=== PATIENT | female | born 1970 | race Caucasian/White ===

== ENCOUNTER 2016-08-30 08:51 | Emergency (ER) | payer OTHER ==
[~2016-08-30] VITALS: Ht 152.4 cm; Wt 69.5 kg
[~2016-08-30 08:51] MED LIST: BACL10TA PO; BUTR20DI2 TD; CYMB60CA PO; FIORIC PO; RANI150 PO; TOPI25CA PO; ZOFR4TAB3 SL
[2016-08-30 08:53] VITALS: BP 143/82; PULSE 78; RESP 20; TEMP 99.3; O2SAT 96
--- NOTE | 2016-08-30 09:04 | PD ---
HPI . Left wrist pain for 2 days Chief Complaint: Edema Time Seen by Provider: 09:04 Travel History International Travel<30 days: No Contact w/Intl Traveler<30days: No Traveled to known affect area: No History of Present Illness HPI 46-year-old female with history of migraines, rheumatoid arthritis, anxiety and depression here with complaints of left wrist pain for the past 2 days. Patient said she was doing some yard work and all of a sudden yesterday developed some intense left wrist pain. She does not recall any type of injury however tells me that it was possible. She rates the pain as 9.5/10 in the left distal wrist. There is no further radiation. She is right-hand dominant. PFSH Past Medical History Arthritis: Yes (RA) Anxiety: Yes Depression: Yes Cancer: No Cardiovascular Problems: No Diabetes: No Endocrine: No Genitourinary: No Headaches: Yes Hepatitis: No Hiatal Hernia: No Immune Disorder: No Kidney Stones: Yes Musculoskeletal: Yes (RHEUMATOID ARTHRITIS/BACK) Neurologic: No Psychiatric: Yes (ANXIETY, DEPRESSION) Reproductive: No Respiratory: No Immunizations Current: Yes Thyroid Disease: No ?: Not LMP: 5-6 months ago. : 2 Para: 2 Tubal Ligation: Yes Past Surgical History AICD: No Joint Replacement: No Pacemaker: No Other Surgery: Yes (EPIDURAL) Social History Alcohol Use: No Tobacco Use: No Substance Use: No Allergies-Medications (Allergen,Severity, Reaction): Coded Allergies: Sulfa (Verified Allergy, Severe, Hives, 08/30/16) Reported Meds & Prescriptions Reported Meds & Active Scripts Active Medrol Dosepak (Methylprednisolone) 4 Mg Dspk 4 Mg PO DIRECTED Per Pharmacist direction Reported Trazodone (Trazodone HCl) 50 Mg Tab 50 Mg PO HS Leflunomide 20 Mg Tab 20 Mg PO DAILY Amoxicillin 250 Mg Cap 250 Mg PO BID Cymbalta (Duloxetine Hcl) 60 Mg Cap 60 Mg PO DAILY Zantac 150 Mg Tab (Ranitidine HCl) 150 Mg Tab 150 Mg PO BID Review of Systems General / Constitutional: No: Fever Eyes: No: Visual changes HENT: No: Headaches Cardiovascular: No: Chest Pain or Discomfort Respiratory: No: Shortness of Breath Gastrointestinal: No: Abdominal Pain Genitourinary: No: Dysuria Musculoskeletal: Positive: Pain (left wrist ) Skin: No Rash Neurologic: No: Weakness Psychiatric: No: Depression Endocrine: No: Polydipsia Hematologic/Lymphatic: No: Easy Bruising Physical Exam Narrative GENERAL: AAO x 3, no acute distress, Well-nourished, well-developed patient. SKIN: Warm and dry. No visible rashes or bruising. very minimal erythema of the left distal wrist, warm to touch compared to right wrist, no edema or ecchymosis HEAD: Normocephalic and atraumatic. EYES: No scleral icterus. No injection or drainage. ENT: No nasal drainage noted. Airway patent. NECK: Supple, trachea midline. No JVD. CARDIOVASCULAR: Regular rate and rhythm without murmurs, gallops, or rubs. RESPIRATORY: Breath sounds equal bilaterally. No accessory muscle use. No rhonchi or rales. GASTROINTESTINAL: Abdomen soft, non-tender, nondistended. EXTREMITIES: No cyanosis or edema. tenderness to left distal wrist both ulnar and radial sides. no obvious deformity. no ecchymosis. 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 No CVA tenderness. PSYCH: AAO x 3, normal affect. Data Data Last Documented VS Vital Signs Date Time Temp Pulse Resp B/P Pulse Ox O2 Delivery O2 Flow Rate FiO2 08/30/16 08:53 99.3 78 20 143/82 96 Room Air Orders Wrist, Complete ([id number]) (08/30/16 09:12) Ketorolac Inj (Toradol Inj) (08/30/16 09:30) Support Splint (08/30/16 09:42) MDM Medical Decision Making Medical Screen Exam Complete: Yes Emergency Medical Condition: Yes Medical Record Reviewed: Yes Differential Diagnosis acute on chronic pain due to RA, wrist fracture, wrist contusion Narrative Course 46-year-old female with history of migraines, rheumatoid arthritis, anxiety and depression here with complaints of left wrist pain for the past 2 days. Patient said she was doing some yard work and all of a sudden yesterday developed some intense left wrist pain. She does not recall any type of injury however tells me that it was possible. She rates the pain as 9.5/10 in the left distal wrist. There is no further radiation. She is right-hand dominant. Patient seen and examined. I believe she may be experiencing a flare of her rheumatoid arthritis, however with her recent bouts of yard work I will check an x-ray to rule out fracture. Toradol for pain (patient drove here and we want to avoid any drowsiness etc) Last Impressions Wrist X-Ray 08/30/16 0912 Signed Impressions: Service Date/Time: Tuesday, August 30, 2016 09:36 - CONCLUSION: Negative exam. Gigi Blackmon MD No acute findings. Wrist brace given. Medrol dose pack. Advised f/u with PCP and Toddler Lead Teacher. Patient verbalized understanding of instructions, questions were answered, and thanked me for their care. I advised them if their condition worsens, please return to the nearest emergency room for further care. Diagnosis Primary Impression: Wrist pain, left Patient Instructions: General Instructions Additional Instructions: Please return to emergency department if your symptoms return or worsen. Follow up with your primary care provider. Take medications as prescribed. Please follow up with your vp design. Wear the wrist brace for support. You can ice the area as needed. Scripts Methylprednisolone Dosepak (Medrol Dosepak)4 Mg Dspk4 Mg PO DIRECTED #1 DSPK Ref 0 Per Pharmacist direction Prov:Bruna Alfaro DO 08/30/16 Disposition: 01 DISCHARGE HOME Condition: Stable Osiris Calderon Aug 30, 2016 09:04
[2016-08-30] MEDS ORDERED: AMOX250C3 PO (09:07)
[2016-08-30] MEDS ORDERED: TRAZ50TA12 PO (09:09)
[2016-08-30] MEDS ORDERED: LEFL1TAB3 PO (09:09)
[2016-08-30] MEDS ORDERED: KETOROLAC TROMETHAMINE 60 MG/2 ML (IM) VIAL IM ONE (09:30)
--- NOTE | 2016-08-30 09:33 | RADRPT ---
EXAM DATE/TIME: 08/30/2016 09:36 [facility] COMPARISON: No previous studies available for comparison. INDICATIONS : Left wrist pain, no injury. MEDICAL HISTORY : Rheumatoid arthritis. SURGICAL HISTORY : None. ENCOUNTER: Initial ACUITY: 2 days PAIN SCORE: 10/10 LOCATION: Left lateral wrist FINDINGS: Three view examination of the left wrist demonstrates no soft tissue swelling, dislocation, or fractu re. The carpal bones are in normal alignment. The joint spaces are maintained. Bony mineralization is normal. CONCLUSION: Negative exam. Gigi Blackmon MD on August 30, 2016 at 9:31 Board Certified Radiologist. This report was verified electronically.
[2016-08-30] MEDS ORDERED: MEDR4PAK PO (09:41)
== END 2016-08-30 10:12 | disposition home or self-care (01) ==
LOC: NEPK 08:51
DX: M25.532 Pain in left wrist (principal); F41.9 Anxiety disorder, unspecified; M06.9 Rheumatoid arthritis, unspecified; F32.9 Major depressive disorder, single episode, unspecified; X50.9XXA Other and unspecified overexertion or strenuous movements or postures, initial encounter; Y93.H2 Activity, gardening and landscaping; Y92.017 Garden or yard in single-family (private) house as the place of occurrence of the external cause; Y99.8 Other external cause status
CPT/HCPCS: 73110; 96372; 99283; J1885; L3908

== ENCOUNTER 2017-07-22 04:40 | Emergency (ER) | payer OTHER ==
[~2017-07-22] VITALS: Ht 152.4 cm; Wt 68.0 kg
[~2017-07-22 04:40] MED LIST changes: +AMOX250C3 PO; -BUTR20DI2 TD; -FIORIC PO; +GABA100C4 PO; +HYDR-3516 PO; +LEFL1TAB3 PO; +LEFL20TA11 PO; +MEDR4PAK PO; +PLAQ200T PO; +PRED5TAB PO; +RANI150T PO; +TOPI25 PO; -TOPI25CA PO; +TRAZ50TA12 PO; -ZOFR4TAB3 SL
[2017-07-22 04:42] VITALS: BP 167/107; PULSE 85; RESP 18; TEMP 99.3; O2SAT 98
[2017-07-22] MEDS ORDERED: TRAM50TA PO (04:55)
[2017-07-22] MEDS ORDERED: MAXA10TA2 (04:55)
--- NOTE | 2017-07-22 05:10 | PD ---
HPI Chief Complaint: Abdominal Pain Time Seen by Provider: 05:01 Travel History International Travel<30 days: No Contact w/Intl Traveler<30days: No Traveled to known affect area: No History of Present Illness HPI 46yo F with PMH of rheumatoid arthritis and nephrolithiasis here with c/o left abdominal pain since 7pm. Associated with nausea. Nothing makes the pain better or worst. Pain is intermittent and sharp. Denies any fever, chest pain , sob, vomiting, focal weakness. Said it does not feel like her kidney stone. PFSH Past Medical History Arthritis: Yes (RA) Anxiety: Yes Depression: Yes Cancer: No Cardiovascular Problems: No Diabetes: No Endocrine: No Gastrointestinal Disorders: No Genitourinary: No Headaches: Yes Hepatitis: No Hiatal Hernia: No Hypertension: No Immune Disorder: No Kidney Stones: Yes Musculoskeletal: Yes (RHEUMATOID ARTHRITIS/BACK) Neurologic: No Psychiatric: Yes (ANXIETY, DEPRESSION) Reproductive: No Respiratory: No Immunizations Current: Yes Thyroid Disease: No ?: Unknown : 2 Para: 2 Tubal Ligation: Yes Past Surgical History AICD: No Genitourinary Surgery: Yes (ureteral stent placement, lithotripsy ) Joint Replacement: No Pacemaker: No Other Surgery: Yes (EPIDURAL) Social History Alcohol Use: No Tobacco Use: No Substance Use: No Allergies-Medications (Allergen,Severity, Reaction): Coded Allergies: Sulfa (Sulfonamide Antibiotics) (Unverified Allergy, Severe, Hives, ) Reported Meds & Prescriptions Reported Meds & Active Scripts Active Ibuprofen 800 Mg Tab 800 Mg PO Q8H PRN Phenergan (Promethazine HCl) 25 Mg Tablet 25 Mg PO Q6H PRN Flomax (Tamsulosin HCl) 0.4 Mg Cap 0.4 Mg PO HS Percocet (Oxycodone-Acetaminophen) 5-325 mg Tab 1 Tab PO Q4H PRN Reported Tramadol (Tramadol HCl) 50 Mg Tab 50 Mg PO Q8H PRN Maxalt (Rizatriptan Benzoate) 10 Mg Tab Hydrocodone-Acetaminophen 5-325 mg Tab 1 Tab PO TID PRN Baclofen 10 Mg Tab 10 Mg PO Q8HR Gabapentin 100 Mg Cap 100 Mg PO TID Ranitidine (Ranitidine HCl) 150 Mg Tab 150 Mg PO BID Plaquenil (Hydroxychloroquine Sulfate) 200 Mg Tab 100 Mg PO BID Take with food Topamax (Topiramate) 25 Mg Tab 25 Mg PO BID Prednisone 5 Mg Tab 5 Mg PO DAILY Cymbalta DR (Duloxetine HCl) 60 Mg Capdr 60 Mg PO DAILY Trazodone (Trazodone HCl) 50 Mg Tab 50 Mg PO HS Leflunomide 20 Mg Tab 20 Mg PO DAILY Cymbalta (Duloxetine Hcl) 60 Mg Cap 60 Mg PO DAILY Zantac 150 Mg Tab (Ranitidine HCl) 150 Mg Tab 150 Mg PO BID Review of Systems Except as stated in HPI: all other systems reviewed are Neg Physical Exam Narrative GENERAL: 46yo F in mild distress. SKIN: Focused skin assessment warm/dry. HEAD: Atraumatic. Normocephalic. CARDIOVASCULAR: Regular rate and rhythm. No murmur appreciated. RESPIRATORY: No accessory muscle use. Clear to auscultation. Breath sounds equal bilaterally. GASTROINTESTINAL: Abdomen soft, +TTP epigastric region. +TTP LUQ, LLQ. No rebound tenderness or guarding. BACK: No CVA tenderness bilaterally. MUSCULOSKELETAL: No obvious deformities. No clubbing. No cyanosis. No edema. NEUROLOGICAL: Awake and alert. No obvious cranial nerve deficits. Motor grossly within normal limits. Normal speech. PSYCHIATRIC: Appropriate mood and affect; insight and judgment normal. Data Data Last Documented VS Vital Signs Date Time Temp Pulse Resp B/P (MAP) Pulse Ox O2 Delivery O2 Flow Rate FiO2 07/22/17 08:35 97.9 83 16 143/81 (101) 99 Orders Orders Complete Blood Count With Diff (07/22/17 05:06) Comprehensive Metabolic Panel (07/22/17 05:06) Lipase (07/22/17 05:06) Urinalysis - C+S If Indicated (07/22/17 05:06) Electrocardiogram (07/22/17 ) Ct Abd/Pel W/O Iv Contrast (07/22/17 05:06) Morphine Inj (Morphine Inj) (07/22/17 06:30) Ondansetron Inj (Zofran Inj) (07/22/17 06:30) Sodium Chlor 0.9% 1000 Ml Inj (Ns 1000 M (07/22/17 06:30) Morphine Inj (Morphine Inj) (07/22/17 07:00) Ketorolac Inj (Toradol Inj) (07/22/17 07:15) Tamsulosin (Flomax) (07/22/17 07:15) Ed Discharge Order (07/22/17 08:30) Labs Laboratory Tests Test 07/22/17 05:12 07/22/17 05:55 White Blood Count 10.0 TH/MM3 Red Blood Count 4.61 MIL/MM3 Hemoglobin 14.3 GM/DL Hematocrit 42.5 % Mean Corpuscular Volume 92.4 FL Mean Corpuscular Hemoglobin 31.0 PG Mean Corpuscular Hemoglobin Concent 33.6 % Red Cell Distribution Width 13.2 % Platelet Count 261 TH/MM3 Mean Platelet Volume 8.4 FL Neutrophils (%) (Auto) 75.5 % Lymphocytes (%) (Auto) 9.9 % Monocytes (%) (Auto) 13.3 % Eosinophils (%) (Auto) 0.9 % Basophils (%) (Auto) 0.4 % Neutrophils # (Auto) 7.6 TH/MM3 Lymphocytes # (Auto) 1.0 TH/MM3 Monocytes # (Auto) 1.3 TH/MM3 Eosinophils # (Auto) 0.1 TH/MM3 Basophils # (Auto) 0.0 TH/MM3 CBC Comment DIFF FINAL Differential Comment Blood Urea Nitrogen 19 MG/DL Creatinine 1.22 MG/DL Random Glucose 101 MG/DL Total Protein 7.0 GM/DL Albumin 3.3 GM/DL Calcium Level 8.8 MG/DL Alkaline Phosphatase 94 U/L Aspartate Amino Transf (AST/SGOT) 23 U/L Alanine Aminotransferase (ALT/SGPT) 23 U/L Total Bilirubin 0.4 MG/DL Sodium Level 140 MEQ/L Potassium Level 3.8 MEQ/L Chloride Level 107 MEQ/L Carbon Dioxide Level 27.6 MEQ/L Anion Gap 5 MEQ/L Estimat Glomerular Filtration Rate 47 ML/MIN Lipase 218 U/L Urine Color YELLOW Urine Turbidity HAZY Urine pH 7.0 Urine Specific [place] 1.017 Urine Protein NEG mg/dL Urine Glucose (UA) NEG mg/dL Urine Ketones NEG mg/dL Urine Occult Blood NEG Urine Nitrite NEG Urine Bilirubin NEG Urine Urobilinogen LESS THAN 2.0 MG/DL Urine Leukocyte Esterase SMALL Urine RBC 1 /hpf Urine WBC 3 /hpf Urine Squamous Epithelial Cells <1 /hpf Urine Amorphous Sediment RARE Microscopic Urinalysis Comment CULT NOT INDICATED MDM Medical Decision Making Medical Screen Exam Complete: Yes Emergency Medical Condition: Yes Interpretation(s) EKG: NSR 69bpm. LAD. No ST segment elevation or depression. Differential Diagnosis Gastritis vs. pancreatitis vs. diverticulitis Narrative Course 46yo F with left sided abdominal pain. Labs reviewed, no leukocytosis. H/H normal. Creatinine is 1.22. Lipase normal. UA showed WBC 3. Culture not indicated. CT a/p showed multiple stones in proximal left ureter causing moderate obstructive uropathy. The largest and most distal stone is approximately 7mm in size. Multiple scattered nonobstructing stones in both kidneys are seen. Pt given zofran, morphine and NS IVF. Pt has urologist Dr. Hannah to follow up with. Pt reevaluated at bedside after morphine 4mg IV and is still in a lot of pain so another 4mg of morphine given. Sign out to next team to reevaluate. If pt's pain is control, she can follow up with Dr. Hannah but if unable to control pain, pt will need to be admitted. Diagnosis Primary Impression: Left ureteral calculus Patient Instructions: General Instructions Departure Forms: Tests/Procedures Additional Instructions: Please follow up with your urologist in 1-2 days. Return to the ED if symptoms worsen. Scripts Ibuprofen (Ibuprofen) 800 Mg Tab 800 MG PO Q8H Y for Pain/Inflammation, #60 TAB 0 Refills Prov: Gilda Austin MD 07/22/17 Promethazine (Phenergan) 25 Mg Tablet 25 MG PO Q6H Y for NAUSEA OR VOMITING, #12 TAB 0 Refills Prov: Gilda Austin MD 07/22/17 Tamsulosin (Flomax) 0.4 Mg Cap 0.4 MG PO HS for Manage Prostate Problems, #30 CAP 0 Refills Prov: Gilda Austin MD 07/22/17 Oxycodone-Acetaminophen (Percocet) 5-325 mg Tab 1 TAB PO Q4H Y for PAIN, #12 TAB 0 Refills Prov: Gilda Austin MD 07/22/17 Bruna Alfaro DO Jul 22, 2017 05:10
[2017-07-22 05:27] LABS: AUTOMATED NEUTROPHIL # 7.6 TH/MM3 (1.8-7.7); BASOPHIL % 0.4 % (0.0-2.0); EOSINOPHIL # 0.1 TH/MM3 (0-0.4); EOSINOPHIL % 0.9 % (0.0-4.0); HEMATOCRIT 42.5 % (35.0-46.0); HEMOGLOBIN 14.3 GM/DL (11.6-15.3); LYMPH % 9.9 % (9.0-44.0); MEAN CELL VOLUME 92.4 FL (80.0-100.0); MEAN CORPUSCULAR HGB CONC 33.6 % (32.0-36.0); MEAN PLATELET VOLUME 8.4 FL (7.0-11.0); MONO % 13.3 % (0.0-8.0); MONOCYTE # 1.3 TH/MM3 (0-0.9); NEUT % 75.5 % (16.0-70.0); PLATELET COUNT 261 TH/MM3 (150-450); RED BLOOD COUNT 4.61 MIL/MM3 (4.00-5.30); RED CELL DISTRIBUTION WIDTH 13.2 % (11.6-17.2)
[2017-07-22 05:47] LABS: ALBUMIN 3.3 GM/DL (3.4-5.0); ALT (GPT) 23 U/L (10-53); AST (GOT) 23 U/L (15-37); BICARBONATE 27.6 MEQ/L (21.0-32.0); BLOOD UREA NITROGEN 19 MG/DL (7-18); CALCIUM 8.8 MG/DL (8.5-10.1); CHLORIDE 107 MEQ/L (98-107); CREATININE 1.22 MG/DL (0.50-1.00); GLOMERULAR FILTRATION RATE 47 ML/MIN (>89); GLUCOSE,RANDOM 101 MG/DL (74-106); SODIUM (NA) 140 MEQ/L (136-145)
[2017-07-22 05:50] LABS: ALKALINE PHOSPHATASE 94 U/L (45-117); TOTAL BILIRUBIN ADULT 0.4 MG/DL (0.2-1.0)
--- NOTE | 2017-07-22 06:20 | RADRPT ---
EXAM DATE/TIME: 07/22/2017 06:03 [facility] COMPARISON: CT NEEDLE BIOPSY LIVER, February 19, 2015, 9:26. INDICATIONS : Abdominal pain. ORAL CONTRAST: No oral contrast ingested. RADIATION DOSE: 7.73 CTDIvol (mGy) MEDICAL HISTORY : Renal calculi. SURGICAL HISTORY : Tubal ligation. ENCOUNTER: Initial ACUITY: 1 day PAIN SCALE: 7/10 LOCATION: abdomen TECHNIQUE: Volumetric scanning of the abdomen and pelvis was performed. Using automated exposure control and ad justment of the mA and/or kV according to patient size, radiation dose was kept as low as reasonably achievable to obtain optimal diagnostic quality images. DICOM format image data is available electro nically for review and comparison. FINDINGS: LOWER LUNGS: The visualized lower lungs are clear. LIVER: Too numerous to count, mostly small cysts seen scattered throughout the liver. Similar findings were seen on the limited study during biopsy back in 2014. SPLEEN: Normal size without lesion. PANCREAS: Within normal limits. KIDNEYS: There is a 7 mm stone in the proximal left ureter. There are 3 and 4 mm stones just upstream of it. T here is moderate severity left hydronephrosis. Multiple sub-4 mm nonobstructing stones are seen scatt ered of both kidneys. No ureteral calculus or obstructive uropathy on the right. ADRENAL GLANDS: Within normal limits. VASCULAR: There is no aortic aneurysm. BOWEL/MESENTERY: The stomach, small bowel, and colon demonstrate no acute abnormality. There is no free intraperitone al air or fluid. ABDOMINAL WALL: Within normal limits. RETROPERITONEUM: There is no lymphadenopathy. BLADDER: No wall thickening or mass. REPRODUCTIVE: Within normal limits. INGUINAL: There is no lymphadenopathy or hernia. MUSCULOSKELETAL: Within normal limits for patient age. CONCLUSION: 1. Multiple stones in the proximal left ureter causing moderate obstructive uropathy. The largest and most distal stone is approximately 7 mm in size. Multiple scattered nonobstructing stones in both ki dneys are also seen. 2. Numerous scattered small hepatic cysts. Dileep Mccray MD on July 22, 2017 at 6:16 Board Certified Radiologist. This report was verified electronically.
[2017-07-22 06:30] LABS: AMORPHOUS SEDIMENT, URINE RARE; BILIRUBIN, URINE NEG (NEG); BLOOD, URINE NEG (NEG); GLUCOSE,URINE NEG (NEG); KETONE, URINE NEG (NEG); NITRITE,URINE NEG (NEG); SQUAMOUS EPITHELIAL CELL URINE <1 /hpf (0-5); URINE COLOR YELLOW (YELLW/STRAW); URINE LEUKOCYTE ESTERASE SMALL (NEG)
[2017-07-22] MEDS ORDERED: MORPHINE SULFATE 4 MG/ML INJ IV PUSH ONE ×2 (06:30→07:00)
[2017-07-22] MEDS ORDERED: ONDANSETRON HCL 4 MG/2 ML VIAL IV PUSH ONE (06:30)
[2017-07-22] MEDS ORDERED: SODIUM CHLOR 0.9% 1000 ML INJ 1,000 ML IV ONE (06:30)
[2017-07-22] MEDS ORDERED: TAMSULOSIN HCL 0.4 MG CAP PO ONE (07:15)
[2017-07-22] MEDS ORDERED: KETOROLAC TROMETHAMINE 30 MG/ML (IVP) VIAL IV PUSH ONE (07:15)
[2017-07-22 07:20] VITALS: BP 158/83; PULSE 89; RESP 17; TEMP 97.8; O2SAT 99
--- NOTE | 2017-07-22 07:48 | PD ---
Physical Exam Date Seen by Provider: Jul 22, 2017 Narrative Care was assumed at 7 AM for pain control associated with a kidney stone. Data Data Last Documented VS Vital Signs Date Time Temp Pulse Resp B/P (MAP) Pulse Ox O2 Delivery O2 Flow Rate FiO2 07/22/17 08:22 15 07/22/17 07:20 97.8 89 158/83 (108) 99 Orders Orders Complete Blood Count With Diff (07/22/17 05:06) Comprehensive Metabolic Panel (07/22/17 05:06) Lipase (07/22/17 05:06) Urinalysis - C+S If Indicated (07/22/17 05:06) Electrocardiogram (07/22/17 ) Ct Abd/Pel W/O Iv Contrast (07/22/17 05:06) Morphine Inj (Morphine Inj) (07/22/17 06:30) Ondansetron Inj (Zofran Inj) (07/22/17 06:30) Sodium Chlor 0.9% 1000 Ml Inj (Ns 1000 M (07/22/17 06:30) Morphine Inj (Morphine Inj) (07/22/17 07:00) Ketorolac Inj (Toradol Inj) (07/22/17 07:15) Tamsulosin (Flomax) (07/22/17 07:15) Labs Laboratory Tests Test 07/22/17 05:12 07/22/17 05:55 White Blood Count 10.0 TH/MM3 Red Blood Count 4.61 MIL/MM3 Hemoglobin 14.3 GM/DL Hematocrit 42.5 % Mean Corpuscular Volume 92.4 FL Mean Corpuscular Hemoglobin 31.0 PG Mean Corpuscular Hemoglobin Concent 33.6 % Red Cell Distribution Width 13.2 % Platelet Count 261 TH/MM3 Mean Platelet Volume 8.4 FL Neutrophils (%) (Auto) 75.5 % Lymphocytes (%) (Auto) 9.9 % Monocytes (%) (Auto) 13.3 % Eosinophils (%) (Auto) 0.9 % Basophils (%) (Auto) 0.4 % Neutrophils # (Auto) 7.6 TH/MM3 Lymphocytes # (Auto) 1.0 TH/MM3 Monocytes # (Auto) 1.3 TH/MM3 Eosinophils # (Auto) 0.1 TH/MM3 Basophils # (Auto) 0.0 TH/MM3 CBC Comment DIFF FINAL Differential Comment Blood Urea Nitrogen 19 MG/DL Creatinine 1.22 MG/DL Random Glucose 101 MG/DL Total Protein 7.0 GM/DL Albumin 3.3 GM/DL Calcium Level 8.8 MG/DL Alkaline Phosphatase 94 U/L Aspartate Amino Transf (AST/SGOT) 23 U/L Alanine Aminotransferase (ALT/SGPT) 23 U/L Total Bilirubin 0.4 MG/DL Sodium Level 140 MEQ/L Potassium Level 3.8 MEQ/L Chloride Level 107 MEQ/L Carbon Dioxide Level 27.6 MEQ/L Anion Gap 5 MEQ/L Estimat Glomerular Filtration Rate 47 ML/MIN Lipase 218 U/L Urine Color YELLOW Urine Turbidity HAZY Urine pH 7.0 Urine Specific [place] 1.017 Urine Protein NEG mg/dL Urine Glucose (UA) NEG mg/dL Urine Ketones NEG mg/dL Urine Occult Blood NEG Urine Nitrite NEG Urine Bilirubin NEG Urine Urobilinogen LESS THAN 2.0 MG/DL Urine Leukocyte Esterase SMALL Urine RBC 1 /hpf Urine WBC 3 /hpf Urine Squamous Epithelial Cells <1 /hpf Urine Amorphous Sediment RARE Microscopic Urinalysis Comment CULT NOT INDICATED MDM Supervised Visit with JUANI: No Narrative Course Patient presented with left-sided abdominal pain. CT shows a 7 mm proximal left ureteral stone with mild hydronephrosis. The patient had been given morphine 4 mg IV initially. She has subsequently been given a second dose of morphine along with IV Toradol and oral Flomax. Her pain will be reassessed following these medications. 8 AM Patient reports that she is markedly improved. Diagnosis Primary Impression: Left ureteral calculus Referrals: Krunal Hannah MD 2 days Patient Instructions: General Instructions, Kidney Stones (DC) Departure Forms: Tests/Procedures Additional Instruction: Please follow up with your urologist in 1-2 days. Return to the ED if symptoms worsen. Med/Other Pt SpecificInfo: Prescription(s) given Scripts Ibuprofen (Ibuprofen) 800 Mg Tab 800 MG PO Q8H Y for Pain/Inflammation, #60 TAB 0 Refills Prov: Gilda Austin MD 07/22/17 Promethazine (Phenergan) 25 Mg Tablet 25 MG PO Q6H Y for NAUSEA OR VOMITING, #12 TAB 0 Refills Prov: Gilda Austin MD 07/22/17 Tamsulosin (Flomax) 0.4 Mg Cap 0.4 MG PO HS for Manage Prostate Problems, #30 CAP 0 Refills Prov: Gilda Austin MD 07/22/17 Oxycodone-Acetaminophen (Percocet) 5-325 mg Tab 1 TAB PO Q4H Y for PAIN, #12 TAB 0 Refills Prov: Gilda Austin MD 07/22/17 Disposition: 01 DISCHARGE HOME Condition: Stable Gilda Austin MD Jul 22, 2017 07:48
[2017-07-22 08:22] VITALS: RESP 15
[2017-07-22] MEDS ORDERED: PROM25TA10 PO (08:29)
[2017-07-22] MEDS ORDERED: IBUP1TAB7 PO (08:29)
[2017-07-22] MEDS ORDERED: TAMS5CAP PO (08:29)
[2017-07-22] MEDS ORDERED: PERC5TAB12 PO (08:29)
[2017-07-22 08:35] VITALS: BP 143/81; TEMP 97.9
--- NOTE | 2017-07-22 10:01 | EKG ---
Date Performed: 07/22/2017 Time Performed: 05:22:20 PTAGE: 46 years EKG: Sinus rhythm LOW QRS VOLTAGE IN PRECORDIAL LEADS BORDERLINE ECG NO PREVIOUS TRACING DOCTOR: Marco Franklin Interpretating Date/Time 07/22/2017 10:00:11
== END 2017-07-22 08:35 | disposition home or self-care (01) ==
LOC: NEPC 04:40
DX: N13.2 Hydronephrosis with renal and ureteral calculous obstruction (principal); M06.9 Rheumatoid arthritis, unspecified
CPT/HCPCS: 74176; 80053; 81001; 83690; 85025; 93005; 96361; 96374; 96375; 96376; 99285; J1885; J2270; J2405; J7030

== ENCOUNTER 2018-03-05 10:51 | Observation (INO) ==
--- NOTE | 2018-03-05 14:58 | ED ---
HPI General Chief Complaint: Chest Pain Stated Complaint: Dizzy/Tired/Blood Pressure Complaint Time Seen by Provider: 03/05/18 14:24 Source: patient Mode of arrival: ambulatory Limitations: no limitations History of Present Illness HPI narrative: 47-year-old female with a history of rheumatoid arthritis, nephrolithiasis, migraines, depression, anxiety presents to the emergency department for evaluation of multiple medical complaints. She states that she woke up this morning feeling dizzy, fatigued and had blurred vision which is now resolved. She says she checked her blood pressure was was elevated for her at 150/91. She then did develop abdominal pain, had a bowel movement and felt better. She said she had pain in the right upper arm with associated chest tightness. She says she had associated nausea and headache. She says he has had similar episodes of the last couple weeks and actually went to [facility] where she was evaluated yesterday. She had a CT abdomen pelvis yesterday for evaluation of some abdominal pain she developed yesterday. This pain is unchanged per patient. She says she is also has some right ear pain which is now resolved. Patient denies history of cardiac disease. She denies history of stress test, heart cath, cardiology workup. She denies history of illicit drug use, tobacco use, alcohol use. She says she has a strong family history of heart attacks in their 50s. She is also concerned about her leg cramps she is developed over the last several weeks but this is now resolved. MD complaint: Reports chest pain Duration: intermittent Onset: during rest Pain location: Reports substernal Severity: mild Quality: Reports tightness Pain radiation: Reports RUE Relieving factors: nothing Context: Denies recent immobilization, recent travel, trauma/injury and history of DVT/PE Associated symptoms: Reports nausea and dyspnea; Denies vomiting, diaphoresis and leg swelling Treatments prior to arrival chest pain: Reports none Related Data Home Medications Medication Instructions Recorded Confirmed duloxetine [Cymbalta] 60 mg PO DAILY 03/05/18 03/05/18 gabapentin 300 mg PO TID 03/05/18 03/05/18 hydroxychloroquine [Plaquenil] 200 mg PO BID 03/05/18 03/05/18 leflunomide 20 mg PO DAILY 03/05/18 03/05/18 prednisone 5 mg PO DAILY 03/05/18 03/05/18 ranitidine HCl 150 mg PO BID 03/05/18 03/05/18 trazodone 50 mg PO HS 03/05/18 03/05/18 Allergies Allergy/AdvReac Type Severity Reaction Status Date / Time Sulfa (Sulfonamide Allergy Severe Hives Verified 03/05/18 18:15 Antibiotics) Review of Systems ROS: all other systems reviewed are negative [facility] Medical History Medical History Kidney stones (Acute) Rheumatoid arthritis (Acute) Surgical History Surgical History H/O laparoscopy (Acute) H/O lithotripsy (Acute) H/O tubal ligation (Acute) Social History Social History Substance History: No History of Abuse Second Hand Smoke Exposure: No Smoking Status: Never smoker How Often Do You Have a Drink Containing Alcohol: Never Recent Travel in [facility] within the Last 8 Weeks: No Recent Out of Country Travel within the Last 8 Weeks: No Immunization History Tetanus Immunization: Unsure Exam Narrative Exam Narrative: GENERAL: Well-developed, well-nourished in no apparent distress SKIN: Focused skin assessment warm/dry. HEAD: Atraumatic. Normocephalic. EYES: Pupils equal and round. No scleral icterus. No injection or drainage. ENT: No nasal bleeding or discharge. Mucous membranes pink and moist. NECK: Trachea midline. No JVD. No lymphadenopathy CARDIOVASCULAR: Regular rate and rhythm. No murmur appreciated. No tenderness palpation of the chest wall RESPIRATORY: No accessory muscle use. Clear to auscultation. Breath sounds equal bilaterally. GASTROINTESTINAL: Abdomen soft, mildly tender, nondistended. Hepatic and splenic margins not palpable. MUSCULOSKELETAL: No obvious deformities. No clubbing. No cyanosis. No edema. No tenderness to palpation of the calves NEUROLOGICAL: Awake and alert. No obvious cranial nerve deficits. Motor grossly within normal limits. Normal speech. PSYCHIATRIC: Appropriate mood and affect; insight and judgment normal. Course Initial Documented Vital Signs Temperature 98.1 F 03/05/18 11:36 Pulse Rate 76 03/05/18 11:36 Respiratory Rate 16 03/05/18 11:36 Blood Pressure 193/101 H 03/05/18 11:36 Pulse Oximetry 99 03/05/18 11:36 Last Documented Vital Signs Temperature 98.1 F 03/05/18 11:36 Pulse Rate 73 03/05/18 16:45 Respiratory Rate 17 10/23/18 16:45 Blood Pressure 152/75 H 03/05/18 16:45 Pulse Oximetry 96 03/05/18 16:45 Clinical Decision Support HEART Score Questions History: Slightly suspicious Age: 45-64 years Risk Factors: 3 or more Risk Factors or Hx of Atherosclerotic Disease Initial Troponin: Normal Limit PERC Rule Age greater than or equal to 50: No HR greather than or equal to 100: No Sa02 on room air is less than 95%: No Unilateral Leg Swelling: No Hemoptysis: No Recent Surgery or Trauma: No Prior PE or DVT: No Hormone Use: No Medical Decision Making MDM Narrative Medical decision making narrative: 39-year female presents to the emergency room for evaluation of chest pain with radiation to the right shoulder that is been persistent and worsening today. Patient denies cardiac history but states she had a stress test 10 years ago which was normal for her. Vital signs BP 144/84, HR 81, [id number]% on RA. Aspirin 160 mg ordered for administration. Patient states her pain is decreased but not resolved. Labs are stable. Cardiac enzymes negative. PERC negative. Chest x-ray without acute process. EKG shows sinus rhythm rate 69 without STEMI changes. Similar EKG July 2017. Tylenol and nitro applied. Patient will be admitted to the chest pain center, rule out ACS. Her presentation is atypical however, believe that she was a cardiac workup based off of her symptoms. Patient no longer has the dizziness, blurred vision but states she has chest pain and is concerned about her elevated blood pressure. While in the emergency department, her blood pressure did not exceed 150 systolic and remained in the 140s for most of her visit here today. She may have had a hypertensive urgency however, this is resolved and the chest tightness is persistent. I've requested records from her hospital visit yesterday as she states she was seen yesterday for abdominal pain but was unavailable at the time of her ED visit today. Medical Screen Exam Complete: Yes Emergency Medical Condition: Yes Differential Diagnosis Differential Diagnosis: ACS, angina, anxiety, pulmonary embolism Lab Data Result diagrams: 03/05/18 14:40 03/05/18 14:40 Lab Results 03/05/18 03/05/18 03/05/18 Range/Units 14:40 14:40 14:40 WBC 5.2 (4.0-11.0) th/mm3 RBC 4.58 (4.00-5.30) mil/mm3 Hgb 14.7 (11.6-15.3) gm/dL Hct 43.7 (35.0-46.0) % MCV 95.6 (80.0-100.0) fL MCH 32.1 (27.0-34.0) pg MCHC 33.6 (32.0-36.0) % RDW 13.0 (11.6-17.2) % Plt Count 216 (150-450) th/mm3 MPV 8.8 (7.0-11.0) fL Neut % (Auto) 84.7 H (16.0-70.0) % Lymph % (Auto) 7.5 L (9.0-44.0) % [place] % (Auto) 6.1 (0.0-8.0) % Eos % (Auto) 0.7 (0.0-4.0) % Baso % (Auto) 1.0 (0.0-2.0) % Neut # (Auto) 4.4 (1.8-7.7) th/mm3 Lymph # (Auto) 0.4 L (1.0-4.8) th/mm3 [place] # (Auto) 0.3 (0.0-0.9) th/mm3 Eos # (Auto) 0.0 (0.0-0.4) th/mm3 Baso # (Auto) 0.1 (0.0-0.2) th/mm3 WBC Differential . Differential Comment Auto diff final PT 9.9 (9.8-11.6) sec INR 1.0 Ratio APTT 23.9 L (24.3-30.1) sec Sodium 141 (136-145) meq/L Potassium 4.1 (3.5-5.1) meq/L Chloride 105 (98-107) meq/L Carbon Dioxide 32.4 H (21.0-32.0) meq/L Anion Gap 4 L (5-15) meq/L BUN 11 (7-18) mg/dL Creatinine 0.68 (0.50-1.00) mg/dL Estimated GFR Greater than 89 (>89) mL/min Random Glucose 117 H (74-106) mg/dL Calcium 8.8 (8.5-10.1) mg/dL Total Bilirubin 0.3 (0.2-1.0) mg/dL AST 27 (15-37) U/L ALT 22 (10-53) U/L Alkaline Phosphatase 76 (45-117) U/L Troponin I Less than 0.02 L (0.02-0.05) ng/mL Total Protein 7.1 (6.4-8.2) g/dL Albumin 3.4 (3.4-5.0) g/dL Imaging Data Radiologist's impression: Chest X-Ray 03/05/18 14:46 CONCLUSION: Negative examination. Discharge Plan Discharge Disposition Patient Disposition: 30 Still Patient Discharge Condition Condition: Stable Discharge Details Diagnosis: Atypical chest pain Physicians Team ED Provider: Jeremiah Young ED Midlevel Provider: Jenny Slade Primary Care Provider: Dania Sandoval Attending Provider: Katie Terry ED Status: Left Department Discharge Information Discharge Date/Time: 03/05/18 17:26
[2018-03-05 15:18] LABS: Baso # (Auto) 0.1 th/mm3 (0.0-0.2); Eos % (Auto) 0.7 % (0.0-4.0); Hematocrit 43.7 % (35.0-46.0); Hemoglobin 14.7 gm/dL (11.6-15.3); Lymph # (Auto) 0.4 th/mm3 (1.0-4.8); Lymph % (Auto) 7.5 % (9.0-44.0); Mean Corpuscular HGB Conc 33.6 % (32.0-36.0); Mean Corpuscular Hemoglobin 32.1 pg (27.0-34.0); Mean Corpuscular Volume 95.6 fL (80.0-100.0); Mean Platelet Volume 8.8 fL (7.0-11.0); Mono # (Auto) 0.3 th/mm3 (0.0-0.9); Mono % (Auto) 6.1 % (0.0-8.0); Neut # (Auto) 4.4 th/mm3 (1.8-7.7); Neut % (Auto) 84.7 % (16.0-70.0); Platelet Count 216 th/mm3 (150-450); Red Blood Count 4.58 mil/mm3 (4.00-5.30); White Blood Count 5.2 th/mm3 (4.0-11.0)
[2018-03-05 15:28] LABS: Activated Partial Thrombo Time 23.9 sec (24.3-30.1); Prothrombin Time 9.9 sec (9.8-11.6)
[2018-03-05 15:39] LABS: Albumin 3.4 g/dL (3.4-5.0); Anion Gap 4 meq/L (5-15); Aspartate Aminotransferase 27 U/L (15-37); Blood Urea Nitrogen 11 mg/dL (7-18); Calcium 8.8 mg/dL (8.5-10.1); Carbon Dioxide 32.4 meq/L (21.0-32.0); Chloride 105 meq/L (98-107); Glomerular Filtration Rate Greater Than 89 mL/min (>89); Glucose,Random 117 mg/dL (74-106); Potassium 4.1 meq/L (3.5-5.1); Sodium 141 meq/L (136-145)
[2018-03-05 15:41] LABS: Alanine Aminotransferase 22 U/L (10-53); Alkaline Phosphatase 76 U/L (45-117); Total Protein 7.1 g/dL (6.4-8.2)
--- NOTE | 2018-03-05 15:50 | XR ---
EXAM DATE: 03/05/2018 2:46 PM EDT AGE/SEX: 47 years / Female INDICATIONS: Pain anterior chest, right arm and back today, slightly short of breath CLINICAL DATA: This is the patient's initial encounter. Patient reports that signs and symptoms have been present for 1 day and indicates a pain score of 7/10. MEDICAL/SURGICAL HISTORY: Renal calculi. Tubal ligation. COMPARISON: . FINDINGS: A single AP view of the chest demonstrates the lungs to be symmetrically aerated without evidence of mass, infiltrate or effusion. The cardiomediastinal contours are unremarkable. Osseous structures a re intact. CONCLUSION: Negative examination. Electronically signed by: Dileep London MD 03/05/2018 3:48 PM EDT
[2018-03-05] MEDS ORDERED: Acetaminophen 325 MG Tablet PO ONE (16:05)
[2018-03-05] MEDS ORDERED: ALPRAZolam 0.25 MG Tablet PO PRN (17:19)
--- NOTE | 2018-03-05 17:27 | P.HPCA ---
History of Present Illness Primary Care Physician: Dania Sandoval Chief Complaint: Chest pain History of Present Illness: This is a 47-year-old female with history of hyperlipidemia however no medication at this time, rheumatoid arthritis, and kidney stones that presents to ED via private vehicle to be evaluated primarily for chest discomfort. She states that earlier today she became dizzy and felt fatigued. Said to check her blood pressure and the systolic was in the 150s. Soon later she developed a tightness in the right upper arm and then soon after that developed a left- sided chest discomfort also was a tightness. Seen last a couple hours. Denies shortness of breath nausea or diaphoresis. Cannot recall recent cardiac evaluation, states last time was about 10 years ago and was okay. She was seen at [facility] yesterday for her discomfort does seem to be popping up and jumping around from multiple locations. Thought she may have had another kidney stone. She states a CT of her abdomen and pelvis done yesterday at [facility] were normal. Currently denies chest discomfort. History of hyperlipidemia however not start on medication. Rheumatoid arthritis. History of kidney stones. Denies hypertension, diabetes, and known CAD. Her father had CAD. Lifetime non-smoker. - Diagnosis (1) Chest pain (2) Hyperlipidemia (3) Rheumatoid arthritis Review of Systems General: Patient denies fevers, chills, and recent travel. HEENT: Patient denies headache, sore throat, difficulty swallowing. Cardiovascular: Has the chest discomfort as mentioned above. Denies sensation of heart beating rapidly or irregularly. No syncope. Denies diaphoresis. Respiratory: Denies shortness of breath or inspirational chest discomfort. Denies coughing wheezing or hemoptysis. GI: Patient denies nausea, vomiting, diarrhea, abdominal pain, bloody stools. Musculoskeletal: Patient denies joint pain or edema. Denies calf pain or edema. Neurovascular: Patient denies numbness, tingling, weakness in extremities. Denies headache. She was dizzy. Endocrine: Denies polyuria and polydipsia. Hematologic: Denies easy bruising. Skin: Denies rash or itching. PMFSH - History History Provided By: Patient - Medical History Medical History: Medical History (Last Reviewed 03/05/18 @ 15:00 by DEONTE Hernandez) Kidney stones Rheumatoid arthritis - Surgical History Surgical History: Surgical History (Last Updated 03/05/18 @ 11:44 by Maria A Trujillo) H/O laparoscopy H/O lithotripsy H/O tubal ligation - Tobacco History Second Hand Smoke Exposure: No Tobacco Use In Past 30 Days: No Smoking Status: Never smoker - Alcohol History How Often Do You Have a Drink Containing Alcohol: Never - Substance Use History Substance History: No History of Abuse - Travel History Recent Travel in the [place] Within the Last 8 Weeks: No Recent Travel Out of the Country Within the Last 8 Weeks: No - Immunization History Tetanus Immunization: Unsure Medications and Allergies Active Medications: Active Medications Hydrocodone Bitart/Acetaminophen ([place] 7.5/325) 1 tab PO Q4H PRN PRN Reason: PAIN SCALE 1 TO 7 Alprazolam (Xanax) 0.25 mg PO Q8H PRN PRN Reason: ANXIETY Aspirin (Aspirin) 325 mg PO DAILY ALLAN Ondansetron HCl (Zofran Inj) 4 mg IV.PUSH Q6H PRN PRN Reason: NAUSEA Ondansetron HCl (Zofran Inj) 4 mg IV.PUSH Q6H PRN PRN Reason: NAUSEA Sodium Chloride (Ns Flush) 2 ml IV.FLUSH UNSCH PRN PRN Reason: FLUSH AFTER USING IV ACCESS Sodium Chloride (Ns Flush) 2 ml IV.FLUSH BID ALLAN Sodium Chloride (Ns Flush) 2 ml IV.FLUSH PRN PRN PRN Reason: FLUSH AFTER USING IV ACCESS Sodium Chloride (Ns Flush) 2 ml IV.FLUSH BID ALLAN Sodium Chloride (Ns Flush) 2 ml IV.FLUSH PRN PRN PRN Reason: FLUSH AFTER USING IV ACCESS Allergies Allergy/AdvReac Type Severity Reaction Status Date / Time Sulfa (Sulfonamide Allergy Severe Hives Unverified 03/05/18 11:44 Antibiotics) Exam Vital signs: Vital Signs 03/05/18 11:36 03/05/18 14:41 03/05/18 14:46 Temperature 98.1 F Pulse Rate 76 81 Respiratory Rate 16 17 Blood Pressure 193/101 H 144/84 H Pulse Oximetry 99 97 97 03/05/18 16:30 03/05/18 16:45 Temperature Pulse Rate 75 73 Respiratory Rate 17 17 Blood Pressure 162/81 H 152/75 H Pulse Oximetry 100 96 Intake & Output 03/04/18 03/05/18 03/05/18 18:59 06:59 18:59 Weight 68.9 kg Other: Weight On Admission 68.9 kg Narrative: GENERAL: This is a well-nourished, well-developed patient, in no apparent distress. Patient speaks in clear complete sentences. Patient is pleasant. HEENT: Head is atraumatic and normocephalic. Neck is supple without lymphadenopathy and trachea is midline. No JVD or carotid bruits. CARDIOVASCULAR: Regular rate and rhythm without murmurs, gallops, or rubs. RESPIRATORY: Clear to auscultation. Breath sounds equal bilaterally. No wheezes , rales, or rhonchi. Chest wall is tender. No use of accessory muscles. GASTROINTESTINAL: Abdomen is nontenderNo obvious pulsatile mass or bruit. No CVA tenderness. MUSCULOSKELETAL: Patient is moving upper and lower extremities freely. No calf tenderness or edema, no Homans sign. Strong pulses in upper and lower extremities. NEUROLOGICAL: Patient is alert and oriented. Cranial nerves 2-12 are grossly intact. No focal deficits and speech is clear. SKIN: No rash and turgor is normal. Results 03/05/18 14:40 03/05/18 14:40 Cardiac Enzymes 03/05/18 Range/Units 14:40 AST 27 (15-37) U/L Troponin I Less than 0.02 L (0.02-0.05) ng/mL Coagulation 03/05/18 Range/Units 14:40 PT 9.9 (9.8-11.6) sec APTT 23.9 L (24.3-30.1) sec CBC 03/05/18 Range/Units 14:40 WBC 5.2 (4.0-11.0) th/mm3 RBC 4.58 (4.00-5.30) mil/mm3 Hgb 14.7 (11.6-15.3) gm/dL Hct 43.7 (35.0-46.0) % Plt Count 216 (150-450) th/mm3 Neut # (Auto) 4.4 (1.8-7.7) th/mm3 Lymph # (Auto) 0.4 L (1.0-4.8) th/mm3 [place] # (Auto) 0.3 (0.0-0.9) th/mm3 Eos # (Auto) 0.0 (0.0-0.4) th/mm3 Baso # (Auto) 0.1 (0.0-0.2) th/mm3 Comprehensive Metabolic Panel 03/05/18 Range/Units 14:40 Sodium 141 (136-145) meq/L Potassium 4.1 (3.5-5.1) meq/L Chloride 105 (98-107) meq/L Carbon Dioxide 32.4 H (21.0-32.0) meq/L BUN 11 (7-18) mg/dL Creatinine 0.68 (0.50-1.00) mg/dL Calcium 8.8 (8.5-10.1) mg/dL AST 27 (15-37) U/L ALT 22 (10-53) U/L Alkaline Phosphatase 76 (45-117) U/L Total Protein 7.1 (6.4-8.2) g/dL Albumin 3.4 (3.4-5.0) g/dL Intake and Output 03/05/18 03/05/18 03/05/18 06:59 14:59 22:59 Other: Weight 68.946 kg 68.9 kg Weight On Admission 68.9 kg Patient Weight 03/06/18 06:59 Weight 68.9 kg - Imaging and Cardiology Imaging: Impressions Chest X-Ray 03/05/18 14:46 CONCLUSION: Negative examination. EKG interpretations - EKG EKG shows: sinus rhythm (Initial EKG is sinus rhythm without significant ST segment depressions or elevations.) Caprini VTE Risk Assessment Caprini VTE Risk Assessment: No/Low Risk (score <= 1) Caprini Risk Assessment Model: Point Value = 1 Point Value = 2 Point Value = 3 Point Value = 5 Age 41-60 Minor surgery BMI > 25 kg/m2 Swollen legs Varicose veins or History of unexplained or recurrent spontaneous Oral contraceptives or hormone replacement Sepsis (< 1 month) Serious lung disease, including pneumonia (< 1 month) Abnormal pulmonary function Acute myocardial infarction Congestive heart failure (< 1 month) History of inflammatory bowel disease Medical patient at bed rest Age 61-74 Arthroscopic surgery Major open surgery (> 45 min) Laparoscopic surgery (> 45 min) Malignancy Confined to bed (> 72 hours) Immobilizing plaster cast Central venous access Age >= 75 History of VTE Family history of VTE Factor V Leiden Prothrombin [id number] Lupus anticoagulant Anticardiolipin antibodies Elevated serum homocysteine Heparin-induced thrombocytopenia Other congenital or acquired thrombophilia Stroke (< 1 month) Elective arthroplasty Hip, pelvis, or leg fracture Acute spinal cord injury (< 1 month) Prophylaxis Regimen: Total Risk Factor Score Risk Level Prophylaxis Regimen 0-1 Low Early ambulation 2 Moderate Order ONE of the following: *Sequential Compression Device (SCD) *Heparin 5000 units SQ BID 3-4 Higher Order ONE of the following medications: *Heparin 5000 units SQ TID *Enoxaparin/Lovenox 40 mg SQ daily (WT < 150 kg, CrCl > 30 mL/min) *Enoxaparin/Lovenox 30 mg SQ daily (WT < 150 kg, CrCl > 10-29 mL/min) *Enoxaparin/Lovenox 30 mg SQ BID (WT < 150 kg, CrCl > 30 mL/min) AND/OR *Sequential Compression Device (SCD) 5 or more Highest Order ONE of the following medications: *Heparin 5000 units SQ TID (Preferred with Epidurals) *Enoxaparin/Lovenox 40 mg SQ daily (WT < 150 kg, CrCl > 30 mL/min) *Enoxaparin/Lovenox 30 mg SQ daily (WT < 150 kg, CrCl > 10-29 mL/min) *Enoxaparin/Lovenox 30 mg SQ BID (WT < 150 kg, CrCl > 30 mL/min) AND *Sequential Compression Device (SCD) Assessment and Plan - Assessment (1) Chest pain Code(s): R07.9 - Chest pain, unspecified Status: Acute (2) Hyperlipidemia Code(s): E78.5 - Hyperlipidemia, unspecified Status: Acute (3) Rheumatoid arthritis Code(s): M06.9 - Rheumatoid arthritis, unspecified Status: Acute - Plan * Chest pain: Patient symptoms seem atypical however there are risk factors. She will continue to have serial cardiac enzymes and EKGs for ruling out purposes. She was seen by Dr. Terry of cardiology in the chest pain center. Patient believes she can walk on a treadmill. Patient will undergo a Nicola protocol ETT in the morning if she rules out. Patient will be discharged home if her stress test is nonischemic with instructions to follow-up with PCP. * History of rheumatoid arthritis: Med rec needs to be updated. We will continue medications afterwards. She should resume her home medications at discharge. * Hyperlipidemia: Patient states she was recently told she had hyperlipidemia but not start on medication. She should discuss this further with her PCP for further management. Lipid management would be very important for her as she has family history of CAD. Patient is stable at this time. She is agreeable to this plan. H&P: Quality - VTE Deep Vein Thrombosis/Pulmonary Embolism Present on Admission: No
[2018-03-05 19:07] LABS: Creatine Kinase 83 U/L (26-192)
[2018-03-05] MEDS: Acetaminophen 500 MG Tablet PO PRN (20:30)
[2018-03-05 21:51] LABS: Creatine Kinase 117 U/L (26-192)
--- NOTE | 2018-03-06 08:53 | P.PNCA ---
Subjective Interval history: No further chest pain. Complaining of migraine headache. Relates headache started after Nitropaste applied. Pain pills not effective for pain relief. Requests ibuprofen or caffeine pill. Medications and Allergies Active Medications: Active Medications Acetaminophen (Tylenol) 500 mg PO Q6H PRN PRN Reason: pain scale 1-5 Last Admin: 03/05/18 20:30 Dose: 500 mg Hydrocodone Bitart/Acetaminophen ([place] 7.5/325) 1 tab PO Q6H PRN PRN Reason: pain scale 6-10 Last Admin: 03/06/18 00:50 Dose: 1 tab Albuterol (Duoneb Neb (Prn)) 1 ampul NEB Q4HR NEB PRN PRN Reason: SHORTNESS OF BREATH/WHEEZING Alprazolam (Xanax) 0.25 mg PO Q8H PRN PRN Reason: ANXIETY Aspirin (Aspirin) 325 mg PO DAILY ALLAN Clonidine HCl (Catapres) 0.1 mg PO Q6H PRN PRN Reason: SBP >165 OR DBP > 110 Ketorolac Tromethamine (Toradol Inj) 30 mg IV.PUSH ONCE ONE Stop: 03/06/18 08:42 Ondansetron HCl (Zofran Inj) 4 mg IV.PUSH Q6H PRN PRN Reason: NAUSEA Last Admin: 03/06/18 03:52 Dose: 4 mg Ondansetron HCl (Zofran Inj) 4 mg IV.PUSH Q6H PRN PRN Reason: NAUSEA Sodium Chloride (Ns Flush) 2 ml IV.FLUSH UNSCH PRN PRN Reason: FLUSH AFTER USING IV ACCESS Sodium Chloride (Ns Flush) 2 ml IV.FLUSH BID [facility] Last Admin: 03/05/18 20:32 Dose: 2 ml Sodium Chloride (Ns Flush) 2 ml IV.FLUSH PRN PRN PRN Reason: FLUSH AFTER USING IV ACCESS Allergies Allergy/AdvReac Type Severity Reaction Status Date / Time Sulfa (Sulfonamide Allergy Severe Hives Verified 03/05/18 18:15 Antibiotics) Home Medications Medication Instructions Recorded Confirmed Type duloxetine [Cymbalta] 60 mg PO DAILY 03/05/18 03/05/18 History gabapentin 300 mg PO TID 03/05/18 03/05/18 History hydroxychloroquine [Plaquenil] 200 mg PO BID 03/05/18 03/05/18 History leflunomide 20 mg PO DAILY 03/05/18 03/05/18 History prednisone 5 mg PO DAILY 03/05/18 03/05/18 History ranitidine HCl 150 mg PO BID 03/05/18 03/05/18 History trazodone 50 mg PO HS 03/05/18 03/05/18 History Physical Exam Vital signs: Vital Signs 03/05/18 11:36 03/05/18 14:41 03/05/18 14:46 Temperature 98.1 F Pulse Rate 76 81 Respiratory Rate 16 17 Blood Pressure 193/101 H 144/84 H Pulse Oximetry 99 97 97 03/05/18 16:30 03/05/18 16:45 03/05/18 20:00 Temperature 98.0 F Pulse Rate 75 73 86 Respiratory Rate 17 17 15 Blood Pressure 162/81 H 152/75 H 130/76 Pulse Oximetry 100 96 98 03/05/18 22:15 03/06/18 00:00 03/06/18 04:00 Temperature 97.3 F L 97.3 F L Pulse Rate 69 68 Respiratory Rate 15 16 Blood Pressure 137/80 132/70 Pulse Oximetry 98 95 97 03/06/18 08:18 Temperature 98.8 F Pulse Rate 72 Respiratory Rate 20 Blood Pressure 124/83 Pulse Oximetry 99 Intake & Output 03/05/18 03/06/18 03/06/18 18:59 06:59 18:59 Weight 68.9 kg Other: # Voids 1 Weight On Admission 68.9 kg Narrative: GENERAL: Alert WN, WD, NAD, pleasant, female, holding head and appears to be sensitive to light HEAD: NC, AT CV: RRR, without murmur, rub, gallop, no JVD, S1-S2 no S3-S4. RESP: Clear lungs throughout bilateral, no crackles, wheeze, rhonchi, symmetrical chest rise, nonlabored, able to speak in full sentences EXT: Pulses +2x4, no dependent edema MS: Normal tone x4 extremities, no obvious deformities, full range of motion PSYCH: A+O x3, pleasant affect, appropriate speech, mood, insight and judgment SKIN: Normal turgor, normal texture, no lesions, no rashes, brisk cap refill, even hair distribution Results 03/05/18 14:40 03/05/18 14:40 Cardiac Enzymes 03/05/18 03/05/18 03/05/18 Range/Units 14:40 14:40 17:50 AST 27 (15-37) U/L Troponin I Less than 0.02 L Cancelled Less than 0.02 L (0.02-0.05) ng/mL 03/05/18 Range/Units 20:41 AST (15-37) U/L Troponin I Less than 0.02 L (0.02-0.05) ng/mL Coagulation 03/05/18 Range/Units 14:40 PT 9.9 (9.8-11.6) sec APTT 23.9 L (24.3-30.1) sec CBC 03/05/18 Range/Units 14:40 WBC 5.2 (4.0-11.0) th/mm3 RBC 4.58 (4.00-5.30) mil/mm3 Hgb 14.7 (11.6-15.3) gm/dL Hct 43.7 (35.0-46.0) % Plt Count 216 (150-450) th/mm3 Neut # (Auto) 4.4 (1.8-7.7) th/mm3 Lymph # (Auto) 0.4 L (1.0-4.8) th/mm3 [place] # (Auto) 0.3 (0.0-0.9) th/mm3 Eos # (Auto) 0.0 (0.0-0.4) th/mm3 Baso # (Auto) 0.1 (0.0-0.2) th/mm3 Comprehensive Metabolic Panel 03/05/18 Range/Units 14:40 Sodium 141 (136-145) meq/L Potassium 4.1 (3.5-5.1) meq/L Chloride 105 (98-107) meq/L Carbon Dioxide 32.4 H (21.0-32.0) meq/L BUN 11 (7-18) mg/dL Creatinine 0.68 (0.50-1.00) mg/dL Calcium 8.8 (8.5-10.1) mg/dL AST 27 (15-37) U/L ALT 22 (10-53) U/L Alkaline Phosphatase 76 (45-117) U/L Total Protein 7.1 (6.4-8.2) g/dL Albumin 3.4 (3.4-5.0) g/dL Intake and Output 03/05/18 03/06/18 03/06/18 22:59 06:59 14:59 Other: # Voids 1 Weight 68.9 kg Weight On Admission 68.9 kg - Imaging and Cardiology Imaging: Impressions Chest X-Ray 03/05/18 14:46 CONCLUSION: Negative examination. Assessment and Plan - Assessment (1) Chest pain Code(s): R07.9 - Chest pain, unspecified Status: Acute Plan: Monitored overnight. ACS ruled out with 3 sets of EKGs and cardiac enzymes. Proceed with exercise cardiac testing after migraine improves. Toradol 30 mg IV x1 dose now, reevaluate after Toradol administered. (2) Hyperlipidemia Code(s): E78.5 - Hyperlipidemia, unspecified Status: Chronic Plan: Follow up with primary care provider. (3) Rheumatoid arthritis Code(s): M06.9 - Rheumatoid arthritis, unspecified Status: Chronic Plan: Follow up with primary care provider. - Plan * Chest pain: Patient symptoms seem atypical however there are risk factors. She will continue to have serial cardiac enzymes and EKGs for ruling out purposes. She was seen by Dr. Terry of cardiology in the chest pain center. Patient believes she can walk on a treadmill. Patient will undergo a Nicola protocol ETT in the morning if she rules out. Patient will be discharged home if her stress test is nonischemic with instructions to follow-up with PCP. * History of rheumatoid arthritis: Med rec needs to be updated. We will continue medications afterwards. She should resume her home medications at discharge. * Hyperlipidemia: Patient states she was recently told she had hyperlipidemia but not start on medication. She should discuss this further with her PCP for further management. Lipid management would be very important for her as she has family history of CAD. Patient is stable at this time. She is agreeable to this plan.
[2018-03-06] MEDS ORDERED: Aspirin 325 MG Tablet PO SCH (09:00)
[2018-03-06] MEDS ORDERED: Ketorolac Inj 30 MG/ML (IVP) Vial IV.PUSH ONE (09:45)
[2018-03-06] MEDS: Acetaminophen 500 MG Tablet PO PRN (10:58)
[2018-03-06] MEDS ORDERED: Butalbital/APAP/Caff 50/325/40 MG Tablet PO ONE (12:30)
--- NOTE | 2018-03-07 08:08 | ECG ---
Date Performed: 03/05/2018 Time Performed: 17:48:03 PTAGE: 47 years EKG: Sinus rhythm ARM LEADS REVERSED ATYPICAL ECG PREVIOUS TRACING : 08/29/2002 15.24 DOCTOR: Jose Vazquez Interpretating Date/Time 03/07/2018 08:06:49
--- NOTE | 2018-03-07 08:09 | TR ---
Date Performed: 03/06/2018 Time Performed: 11:14:05 DOCTOR: Jose Vazquez DRUG LIST: CLINICAL HISTORY: REASON FOR TEST: REASON FOR ENDING: OBSERVATION: CONCLUSION: Nicola protocol completed. Stopped sec to leg fatigue. Maximum YS=924 Target HR Achie srinivas=82.0% Maximum HD=824/80 Total Exercise Time=9:00. No reprod chest discomfort. No ectopy. No st t segment changes. Great exercise tolerance. Normal bp response. Recovery quick and unremarkable. Subop timal test due to not achieving target heart rate. COMMENTS: Patient exercised using the Nicola protocol. No electrocardiographic changes were seen to suggest ischemia. Hemodynamic response to exercise was normal. No significant arrhythmia was prese nt.
== END 2018-03-06 12:28 | disposition home or self-care (01) ==
LOC: NEPC 10:51 → NEDA 10:51 → NEPFCDU 17:10
PROVIDERS: ADMIT Internal Medicine Interventional Cardiology; ATTEND Internal Medicine Interventional Cardiology
DX: Z87.442 Personal history of urinary calculi; Z82.49 Family history of ischemic heart disease and other diseases of the circulatory system; E78.5 Hyperlipidemia, unspecified; M06.9 Rheumatoid arthritis, unspecified; R07.9 Chest pain, unspecified; Z98.51 Tubal ligation status; Z88.2 Allergy status to sulfonamides; G43.909 Migraine, unspecified, not intractable, without status migrainosus; R53.83 Other fatigue